=== PATIENT | male | born 1945 | race Caucasian/White ===

== ENCOUNTER 2023-12-26 12:46 | Emergency (ER) | payer MEDICARE ==
[2023-12-26] MEDS ORDERED: Acetaminophen 325 MG TAB ONE ×2 (13:23→13:24)
[2023-12-26] MEDS ORDERED: Bacitracin 1 PK ONE (13:23)
[2023-12-26] MEDS ORDERED: Lidocaine 1% w/Epinephrine 1:100K 20 ML VIAL ONE (13:23)
[2023-12-26] MEDS ORDERED: Boostrix 0.5 ML (Tdap) VIAL (>/=7 yrs of age) ONE (13:24)
== END 2023-12-26 14:42 | disposition home or self-care (01) ==
LOC: ERS 12:46
DX: S01.81XA Laceration without foreign body of other part of head, initial encounter (principal); J44.9 Chronic obstructive pulmonary disease, unspecified; W01.198A Fall on same level from slipping, tripping and stumbling with subsequent striking against other object, initial encounter; Y93.89 Activity, other specified; Y92.511 Restaurant or cafe as the place of occurrence of the external cause; Z23 Encounter for immunization
CPT/HCPCS: 12013; 70450; 72125; 90471; 90715